=== PATIENT | female | born 1975 | race Caucasian/White ===

== ENCOUNTER 2019-10-16 06:05 | Emergency (ER) | payer MEDICAID, OTHER ==
[~2019-10-16 06:05] MED LIST: BUSP10TA PO; FLUO20TA25 PO; IBUP-1623 PO; OMEP-110 PO
[2019-10-16 06:08] VITALS: BP 142/89
[2019-10-16] MEDS ORDERED: SULFAMETH./TRIMETHOPRIM DS 800MG/160MG TABLET PO ONE (06:30)
[2019-10-16] MEDS ORDERED: OXYcodone/APAP 5/325MG TABLET PO ONE (06:30)
[2019-10-16] MEDS ORDERED: CEFTRIAXONE 1,000 MG IM ONE (06:30)
[2019-10-16] MEDS ORDERED: SULFAMETH./TRIMETHOPRIM DS 800MG/160MG TABLET ONE (06:41)
[2019-10-16] MEDS ORDERED: CEFTRIAXONE 1,000 MG ONE (06:42)
[2019-10-16] MEDS ORDERED: OXYcodone/APAP 5/325MG TABLET ONE (06:42)
== END 2019-10-16 07:04 | disposition home or self-care (01) ==
LOC: ED 06:32
DX: L03.113 Cellulitis of right upper limb (principal); F17.290 Nicotine dependence, other tobacco product, uncomplicated
CPT/HCPCS: 29260; 96372; 99283; J0696